=== PATIENT | male | born 1975 | race Caucasian/White ===

== ENCOUNTER 2024-02-28 10:49 | Emergency (ER) | payer OTHER ==
[~2024-02-28] VITALS: Ht 182.9 cm; Wt 96.0 kg
[2024-02-28 10:53] VITALS: TEMP 97.4
[2024-02-28 12:08] LABS: BILIRUBIN,URINE NEGATIVE (Neg); CLARITY,URINE CLEAR (Clear); COLOR,URINE YELLOW (Yellow); GLUCOSE, URINE NEGATIVE (Neg); KETONES,URINE NEGATIVE (Neg); LEUKOCYTE ESTERASE ,URINE NEGATIVE (Neg); NITRITES, URINE NEGATIVE (Neg); OCCULT BLOOD,URINE NEGATIVE (Neg); PROTEIN,URINE NEGATIVE (Neg); UROBILINOGEN,URINE 0.2 E.U/dL (0.2-1.0)
[2024-02-28 12:19] LABS: UA COLLECTION TYPE CLN CATCH MIDSTREAM
[2024-02-28 12:20] LABS: BASOPHILS # (AUTO) 0.1 X10'3 (0-0.2); BASOPHILS % (AUTO) 1.1 % (0-1); EOSINOPHILS # (AUTO) 1.1 X10'3 (0-0.9); EOSINOPHILS % (AUTO) 13.4 % (0-6); HEMATOCRIT 46.3 % (42.0-52.0); HEMOGLOBIN 15.3 g/dl (14.0-17.9); LYMPHOCYTES # (AUTO) 1.7 X10'3 (1.1-4.8); LYMPHOCYTES % (AUTO) 20.1 % (21-51); MEAN CORPUSCULAR HEMOGLOBIN 29.1 PG (27.0-31.0); MEAN CORPUSCULAR VOLUME 88.2 FL (78-98); MONOCYTES # (AUTO) 0.7 X10'3 (0-0.9); MONOCYTES % (AUTO) 8.8 % (2-12); NEUTROPHILS # (AUTO) 4.7 X10'3 (1.8-7.7); NEUTROPHILS % (AUTO) 56.6 % (42-75); PLATELET COUNT 357 X10'3 (140-440); RED BLOOD COUNT 5.25 X10'6 (4.70-6.10); RED CELL DISTRIBUTION WIDTH 14.5 % (11.5-14.5); WHITE BLOOD COUNT 8.3 X10'3 (4.5-11.0)
[2024-02-28 12:29] LABS: ALANINE AMINOTRANSFERASE 47 U/L (12-78); ALBUMIN 3.5 G/DL (3.4-5.0); ALBUMIN/GLOBULIN RATIO 0.8 (1.1-1.5); ALKALINE PHOSPHATASE 41 IU/L (46-116); ANION GAP 7 (8-16); ASPARTATE AMINO TRANSFERASE 26 U/L (10-37); BILIRUBIN,TOTAL 0.6 MG/DL (0.1-1.0); BLOOD UREA NITROGEN 19 MG/DL (7-18); BUN/CREATININE RATIO 16.5 (10.0-20.0); CALCIUM 9.4 MG/DL (8.5-10.1); CHLORIDE 101 MMOL/L (99-107); CREATININE 1.15 MG/DL (0.60-1.10); GLUCOSE 85 MG/DL (70-104); LIPASE 48 U/L (16-77); POTASSIUM 4.2 MMOL/L (3.5-5.1); SODIUM 139 MMOL/L (135-145); TOTAL CARBON DIOXIDE 30.6 MMOL/L (24-32); TOTAL PROTEIN 7.9 G/DL (6.4-8.2); eCRCL 87 ML/MIN; eGFR 68 ML/MIN
[2024-02-28] MEDS: piperacillin/tazo 3.375gm/50ml 50 ML IV ONE (13:47)
[2024-02-28] MEDS: ketorolac trometh 15mg/ml vial 15 MG/ML ML IV ONE (14:46)
[2024-02-28] MEDS: oxyCODONE/APAP 5-325mg tablet PO ONE (14:46)
[2024-02-28] MEDS ORDERED: AMOX-580 PO (14:53)
[2024-02-28] MEDS ORDERED: TRAM50TA2 PO (14:53)
[2024-02-28 15:32] VITALS: BP 131/88; PULSE 66; RESP 14; O2SAT 98
== END 2024-02-28 15:40 | disposition home or self-care (01) ==
LOC: ER 10:50
DX: K57.32 Diverticulitis of large intestine without perforation or abscess without bleeding (principal); M54.50 Low back pain, unspecified
CPT/HCPCS: 36415; 74176; 80053; 81003; 83690; 84145; 85025; 96365; 96375; 99285; J1885; J2543; J7030